=== PATIENT | female | born 1990 | race Caucasian/White ===

== ENCOUNTER 2016-08-24 20:40 | Inpatient (IN) ==
[2016-08-24] MEDS ORDERED: traZODone 50 MG TABLET PO PRN (21:02)
[2016-08-24] MEDS ORDERED: Haloperidol Lactate 5 MG/ML VIAL IM PRN (21:02)
[2016-08-24] MEDS ORDERED: hydrOXYzine pamoate 25 MG CAPSULE PO PRN (21:02)
[2016-08-24] MEDS ORDERED: *HR* LORazepam 2 MG/ML VIAL IM PRN (21:02)
[2016-08-24] MEDS ORDERED: Mag Hydrox/Al Hydrox/Simeth 30 ML UDC PO PRN (21:02)
[2016-08-24] MEDS ORDERED: *HR* LORazepam 1 MG TABLET PO PRN (21:02)
[2016-08-24] MEDS ORDERED: MOM Conc 10 ML UD.LIQ PO PRN (21:02)
[2016-08-25] MEDS ORDERED: Venlafaxine XR (24 HR) 75 MG CAP.ER.24H PO SCH (09:00)
--- NOTE | 2016-08-25 14:22 | Psychiatry History & Physical ---
Date of Encounter: 08/25/16 Time of Encounter: 02:10 History of Present Illness Patient Stated Chief Complaint: "I feel depressed and suicidal" Medicare Admission Attestation: For traditional Medicare patients the provided hospital inpatient services are reasonable and necessary and in the case of services not specified as inpatient -only under 42 CFR 419.22 (n), that they are appropriately provided as inpatient services in accordance 42 CFR 412.3. For Critical Access Hospital the patient may reasonably be expected to be discharged or transferred to a hospital within 96 hours after admission to the Critical Access Hospital. Admitted From: Direct Admit Plans for Post Hospital Care: Home History of Present Illness: Ms. Ramirez is a 26 year old female Was referred for hospitalization from [facility] where she presented with depression and suicidal ideation. Patient reported that she has struggled from depression off and on since she was a teenager. She reported that her recent bout of depression has started after she had her youngest daughter, on the go. Patient reported that immediately after delivery she has been feeling extremely low helpless and hopeless sad. Patient reported that she has noticed low energy levels a motivation isolation and withdrawn behavior. Patient reported that she has been noticing worsening of her depression with each day. She was put on Effexor by her [employer]ILL[employer]ER 3 weeks ago without much benefit. Patient continued to experience worsening of her depression along with suicidal thoughts and ideations. She was unable to contract for safety and was posing a threat to herself so it was decided to hospitalize her at [address] mental health unit for safety concerns. Past Med Surg Social Fam HX - Past Medical History Medical history: asthma - Past Psychiatric History Psychiatric history: Reports: depression, previous psychiatric hospitalization Past psychiatric history details: Patient has been struggling from depression off and on for the last many years. She reported that it started when she was a teenager. She has 1 prior psychiatric hospitalization in May 2014 after she had her first daughter. She is currently receiving treatment from her [employer] and has been taking Effexor for the last 3 weeks without much benefit. Family psychiatric history: Yes Family Psychiatric History Details: Sister suffers from depression and has attempted suicide in the past Family History of Suicide: Attempted Family Suicide History Details: sister - Past Surgical History Surgical History: - Social History Smoking Status: Former smoker Alcohol use: none Drug use: none Occupational status: unemployed Current living situation: Home, With Family Activity Level: Independent ambulation Recent Out of Country Travel Within the Last 8 Weeks: No Exposure or Possible Exposure to Illness During Travel: No Additional social history: Patient Elisabeth and raised in [place]. Reported good childhood. Denies any physical or sexual abuse. Patient has one daughter from a previous relationship. She is currently and resides with her and has [id number] daughter. She denies any legal issues. Medications & Allergies Venlafaxine XR (24 HR) [Effexor XR] 75 mg PO DAILY 08/24/16 [History] Allergies cinnamon Allergy (Verified 08/24/16 21:02) Difficulty Breathing Penicillins [PCN] Allergy (Verified 08/24/16 21:02) Hives Review of Systems Constitutional: Denies: fever, chills, weakness, weight change Eyes: Denies: eye pain, vision change Ears, Nose, Throat: Denies: ear pain, throat pain, dental pain, hearing loss, congestion Cardiovascular: Denies: chest pain, palpitations, dyspnea on exertion Respiratory: Denies: cough, dyspnea, wheezes Gastrointestinal: Denies: abdominal pain, nausea, vomiting, diarrhea, constipation Genitourinary male: Denies: urgency, dysuria, frequency, genital lesions Genitourinary female: Denies: urgency, dysuria, frequency, abnormal menses, dyspareunia Musculoskeletal: Denies: joint swelling, joint pain Neurological: Denies: headache, weakness, numbness, memory loss Psychiatric: Reports: depression, suicidal ideation, anhedonia, difficulty concentrating, hopelessness Hematologic/Lymphatic: Denies: easy bruising, lymphadenopathy Allergic/Immunologic: Denies: urticaria, itchy eyes Mental Status Exam Patient orientation: Yes Person, Yes Time, Yes Place Level of alertness: Alert Patient appearance: Appropriate, Well Groomed Behavior: calm, cooperative Psychomotor activity: Normal Eye contact: Maintains Eye Contact Mood description: Depressed Affect description: flat, tearful, dysphoric Speech pattern: Slowed Speech volume: Soft/Quiet Thought process: Linear, Goal Oriented Thought content: Yes Suicidal ideation, No Homicidal ideation, No Overt delusions Perceptual disturbances: No Auditory hallucinations, No Visual hallucinations Attention span: Capable of Focused Attention Memory description: Grossly Intact Patient reliability: Reliable Historian Intelligence estimate: Average Judgment: Limited Insight: Partial Exam - HEENT Head exam IM: Present: atraumatic, normal inspection, normocephalic Eye exam IM: Present: normal appearance ENT exam IM: Present: normal exam - Neurological Neurological exam IM: Present: alert, CN II-XII intact, normal gait, oriented X3 , reflexes normal - Respiratory Respiratory exam IM: Absent: chest wall tenderness, decreased breath sounds, rales, respiratory distress, rhonchi, stridor, wheezes, tachypnea - GI/Abdominal GI/Abdominal exam IM: Present: soft - Extremities Extremities exam IM: Present: full ROM. Absent: calf tenderness - Skin Skin exam IM: Present: normal color Results - Vital Signs Vital signs: Temp Pulse Resp BP 98.4 F 90 18 114/79 08/25/16 09:00 08/25/16 09:00 08/25/16 09:00 08/25/16 09:00 Assessment and Plan (1) MDD (major depressive disorder), recurrent severe, without psychosis Current visit: Yes Status: Acute Plan: Admit inpatient for safety and stabilization, Close observation, Suicide Precautions per unit protocol, Encourage participation in unit milieu, Group Therapy, Monitor sleep, Monitor appetite Additional Plan: We will discontinue Effexor since patient has been taking it for longer than 3 weeks without much improvement and started the patient on Paxil 20 mg at bedtime depression. Risks, benefits, side effects, alternatives discussed w/pt: Yes Patient agreeable to treatment: Yes Plans for Post Hospital Care: Home
--- NOTE | 2016-08-26 12:56 | Psychiatry Progress Note ---
Date of Encounter: 08/26/16 Time of Encounter: 12:49 Subjective Interval history: Patient seen and interviewed. Started to notice slight improvement in her mood. Suicidal ideations have started to subside. Patient still appears dysphoric and constricted. He tolerated Paxil fairly well. Encouraged to attend groups and participate in activities which patient is already doing. Patient is also encouraged to work on a safety plan. Overall making progress Review of Systems Psychiatric: Reports: depression, suicidal ideation, anhedonia, difficulty concentrating, hopelessness Objective: Exam Patient orientation: Yes Person, Yes Time, Yes Place Level of alertness: Alert Patient appearance: Appropriate, Well Groomed Behavior: calm, cooperative Psychomotor activity: Normal Eye contact: Maintains Eye Contact Mood description: Depressed Affect description: constricted, dysphoric Speech pattern: Normal rate, Normal rhythm, Normal tone Speech volume: Soft/Quiet Thought process: Linear, Goal Oriented Thought content: No Suicidal ideation, No Homicidal ideation, No Overt delusions Perceptual disturbances: No Auditory hallucinations, No Visual hallucinations Judgment: Fair Insight: Partial Results - Vital Signs Vital Signs: Temp Pulse Resp BP 97.8 F 87 18 110/77 08/26/16 09:00 08/26/16 09:00 08/26/16 09:00 08/26/16 09:00 Assessment and Plan (1) MDD (major depressive disorder), recurrent severe, without psychosis Current visit: Yes Status: Acute Plan: Continue hospitalization, Close observation, Suicide Precautions per unit protocol, Encourage participation in unit milieu, Group Therapy, Monitor sleep, Monitor appetite Additional Plan: Continue with current medications Risks, benefits, side effects, alternatives discussed w/pt: Yes Patient agreeable to treatment: Yes
[2016-08-26] MEDS: Acetaminophen 325 MG TABLET PO PRN (16:02)
--- NOTE | 2016-08-27 10:55 | Psychiatry Progress Note ---
Date of Encounter: 08/27/16 Time of Encounter: 10:30 Subjective Interval history: Patient is seen for follow-up. I reviewed records and medications. She reports tolerating Paxil and having adequate sleep but continues to experience anxiety about being in the hospital. I had a long discussion with the patient about medication safety during . 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 She reports occasional suicidal thoughts and racing thoughts. Review of Systems Psychiatric: Reports: depression, suicidal ideation, anhedonia, difficulty concentrating, hopelessness Objective: Exam Patient orientation: Yes Person, Yes Time, Yes Place Level of alertness: Alert Patient appearance: Appropriate, Well Groomed Behavior: calm, cooperative, anxious Psychomotor activity: Normal Eye contact: Maintains Eye Contact Mood description: Anxious, Labile Affect description: congruent with mood, labile, anxious Speech pattern: Normal rate, Normal rhythm, Normal tone Speech volume: Normal Thought process: Linear, Goal Oriented Thought content: Yes Suicidal ideation, No Homicidal ideation, No Overt delusions Perceptual disturbances: No Auditory hallucinations, No Visual hallucinations Judgment: Fair Insight: Partial Results - Vital Signs Vital Signs: Temp Pulse Resp BP 98.2 F 79 16 120/78 08/27/16 09:00 08/27/16 09:00 08/27/16 09:00 08/27/16 09:00
[2016-08-27] MEDS: Acetaminophen 325 MG TABLET PO PRN (20:35)
[2016-08-28 08:56] VITALS: BP 120/82
--- NOTE | 2016-08-28 13:29 | Discharge Summary ---
Date of Encounter: 08/28/16 Time of Encounter: 13:26 Diagnosis - Discharge Diagnosis (1) MDD (major depressive disorder), recurrent severe, without psychosis Status: Acute Medications - Discharge Medications Prescriptions: Paroxetine [Paxil] 20 mg PO HS #30 tablet Paroxetine [Paxil] 20 mg PO HS #30 tablet 08/28/16 [Rx] Allergies cinnamon Allergy (Verified 08/24/16 21:02) Difficulty Breathing Penicillins [PCN] Allergy (Verified 08/24/16 21:02) Hives Provider Date of admission: 08/24/16 20:40 Primary care physician: PCP NO Consults: 08/27/16 15:53 Consult to Wound Care [CONS] Stat Reason for Consult: incision less than one month old Time Notified: 15:55 Call Completed: Yes Discharging clinician: Bryce Sibley Assessment and Plan - Patient/Caregiver Discharge Instructions Activity: resume usual activities as tolerated Diet: regular diet - [facility]30/16 9:00 am (You will see Tomas Jackson for counseling on 08/30/2016 at 9:00am.) [facility] [Outside] - 10/09/16 9:00 am (The above appointment is with Rolf Dougherty, psychiatric prescriber. You will receive a new patient packet in the mail. Please bring that completed packet to this appointment, along with your insurance card, photo ID and medication list. After you are seen by the prescriber, you will be referred to the counselor in the office. If you are unable to keep this appointment, 24 hour business notice of cancellation is expected. This is the first available appointment. You may contact the office regularly to check for cancellations that may allow you to be seen sooner. ) Functional capacity at discharge: independent ambulation Overall status at discharge: Stable Disposition: Home, Self-Care Hospital Course Hospital course: Ms. Ramirez is a 26 year old female admitted for depression and suicidal ideation. For details of the admission please see H&P On the units patient was taken off Effexor and started on Paxil 20 mg daily. She reported improved sleep and less anxiety and denied any side effects from Paxil patient was careful not to be on medication because she is lactating and . She was educated about medications safety and . Patient participated in group activities and was medication compliant, she denied any suicidal ideation and was future oriented and anxious to be with her family. Her discharge plans including therapy and medication management has been completed by the social sciences chair. - Time Spent with Patient Total time spent providing and/or coordinating discharge services: Greater than 30 minutes Quality - Multiple Antipsychotics Patient discharged on 2 or more antipsychotic medications: No Procedures - Procedures Procedures: Medication Management, Crisis Stabilization, Supportive Therapy, Group Therapy, Psychoeducational Therapy Mental Status Exam - Mental Status Exam Patient orientation: Yes Person, Yes Time, Yes Place Level of alertness: Alert Patient appearance: Appropriate, Well Groomed Behavior: calm, cooperative Psychomotor activity: Normal Eye contact: Maintains Eye Contact Mood description: Euthymic/stable Affect description: congruent with mood, full range Speech pattern: Normal rate, Normal rhythm, Normal tone Speech Volume: Normal Thought process: Linear, Goal Oriented Thought Content: No Suicidal ideation, No Homicidal ideation, No Overt delusions Perceptual Disturbances: No Auditory hallucinations, No Visual hallucinations Judgment: Limited Insight: Partial
== END 2016-08-28 20:12 | disposition home or self-care (01) | DRG 751 ==
LOC: SUATTDRO 20:40 → 1ANU 20:40
PROVIDERS: ADMIT Psychiatry & Neurology Psychiatry; ATTEND Psychiatry & Neurology Psychiatry

== ENCOUNTER 2020-01-25 12:59 | Observation (INO) ==
[2020-01-25] MEDS ORDERED: hydrOXYzine pamoate 25 MG CAPSULE PO PRN (13:10)
[2020-01-25] MEDS ORDERED: traZODone 50 MG TABLET PO PRN (13:10)
[2020-01-25] MEDS ORDERED: *HR* LORazepam 1 MG TABLET PO PRN (13:10)
[2020-01-25] MEDS ORDERED: *HR* LORazepam 2 MG/ML VIAL IM PRN (13:10)
[2020-01-25] MEDS ORDERED: MOM Conc 10 ML UD.LIQ PO PRN (13:10)
[2020-01-25] MEDS ORDERED: Mag Hydrox/Al Hydrox/Simeth 30 ML UDC PO PRN (13:10)
[2020-01-25] MEDS ORDERED: Haloperidol Lactate 5 MG/ML VIAL IM PRN (13:10)
[2020-01-25] MEDS ORDERED: haloperidoL 5 MG TABLET PO PRN (13:10)
[2020-01-25] MEDS ORDERED: Acetaminophen 325 MG TABLET PO PRN (13:10)
[2020-01-26 08:50] VITALS: BP 95/76
== END 2020-01-26 15:40 | disposition home or self-care (01) ==
LOC: INTOOBSV 12:59 → 1ANU 12:59
PROVIDERS: ADMIT Psychiatry & Neurology Psychiatry; ATTEND Psychiatry & Neurology Psychiatry